=== PATIENT | male | born 1960 | race American Indian/Alaskan Native ===

== ENCOUNTER 2017-08-05 16:10 | Inpatient (IN) | payer MEDICAID ==
[2017-08-05] MEDS ORDERED: Sodium Chloride 0.9% 1,000 ML IV STA (16:31)
--- NOTE | 2017-08-05 16:55 | ED PDOC ---
Arrival/HPI - General Chief Complaint: Weakness/Neurological Deficit Time Seen by Provider: 08/05/17 16:19 Historian: Patient - History of Present Illness Narrative History of Present Illness (Text): 08/05/17 16:33 57 year old male, whose past medical history includes myasthenia gravis, comes in with mother and cousin, presents to the emergency department complaining of weakness for 3 days. Patient reports feeling dehydrated and weak, stating symptoms came out of nowhere. Patient's mother mentions patient was experiencing chills last week while taking antibiotics for elbow pain. Patient notes experiencing lower back pain, right shoulder pain, shortness of breath when ambulating, and appetite changes. Denies of any fever, nausea, vomiting, abdominal pain, chest pain, headache, hematuria, urine output changes, or any other complaints. Patient sometimes uses a cane to ambulate but normally does not. PMD: Dr. Gasca Symptom Onset: Gradual Symptom Course: Unchanged Past Medical History - Provider Review Nursing Documentation Reviewed: Yes - Infectious Disease Hx of Infectious Diseases: None - Tetanus Immunization Tetanus Immunization: Unknown - Cardiac Hx Cardiac Disorders: Yes Hx Hypertension: Yes - Pulmonary Hx Respiratory Disorders: No - Neurological Hx Neurological Disorder: Yes (myasthenia gravis, Multiple Sclerosis) - HEENT Hx HEENT Disorder: No - Renal Hx Renal Disorder: Yes - Endocrine/Metabolic Hx Endocrine Disorders: No - Hematological/Oncological Hx Blood Disorders: Yes - Integumentary Hx Dermatological Disorder: No - Musculoskeletal/Rheumatological Hx Musculoskeletal Disorders: No - Gastrointestinal Hx Gastrointestinal Disorders: No - Genitourinary/Gynecological Hx Genitourinary Disorders: No - Psychiatric Hx Psychophysiologic Disorder: No Hx Substance Use: No - Surgical History Other/Comment: Thymectomy - Anesthesia Hx Anesthesia: Yes - Suicidal Assessment Feels Threatened In Home Enviroment: No Family/Social History - Physician Review Nursing Documentation Reviewed: Yes Family/Social History: No Known Family HX Smoking Status: Former Smoker Hx Alcohol Use: No Hx Substance Use: No Allergies/Home Meds Allergies/Adverse Reactions: Allergies No Known Allergies Allergy (Verified 06/11/16 09:01) Home Medications: Home Meds Medication Instructions Recorded Confirmed Lenalidomide [Revlimid] 25 mg PO DAILY 04/29/16 06/11/16 Mycophenolate Mofetil [Cellcept] 500 mg PO BID 04/29/16 06/11/16 predniSONE [predniSONE Tab] 10 mg PO BID 04/29/16 06/11/16 Furosemide [Lasix] 0 mg PO DAILY 06/11/16 06/11/16 Amoxicillin/Clavulanate 875 mg PO BID 01/29/17 01/29/17 Dexamethasone 40 mg PO MON 01/29/17 01/29/17 Ergocalciferol (Vitamin D2) 50,000 units PO MON 01/29/17 01/29/17 [Vitamin D2] Ferrous Sulfate [Feosol] 1 tab PO DAILY 01/29/17 01/29/17 Flovent Hfa 2 inh INH BID 01/29/17 01/29/17 Lenalidomide [Revlimid] 25 mg PO DAILY 01/29/17 01/29/17 Losartan-Hctz 50-12.5 mg Tab 1 tab PO QAM 01/29/17 01/29/17 Mycophenolate 500 mg PO BID 01/29/17 01/29/17 Promethazine DM 1 tsp PO TID 01/29/17 01/29/17 predniSONE [predniSONE Tab] 5 mg PO BID 01/29/17 01/29/17 Review of Systems - Physician Review All systems were reviewed & negative as marked: Yes - Review of Systems Constitutional: absent: Fevers Respiratory: SOB (sob when ambulating) Cardiovascular: absent: Chest Pain Gastrointestinal: Appetite Changes. absent: Abdominal Pain, Nausea, Vomiting Genitourinary Male: absent: Hematuria, Urinary Output Changes Musculoskeletal: Back Pain (lower back pain), Other (right shoulder pain) Neurological: absent: Headache Physical Exam Vital Signs Reviewed: Yes Vital Signs Temp Pulse Resp BP Pulse Ox 08/05/17 18:10 70 20 95/55 L 100 08/05/17 17:20 66 20 94/55 L 100 08/05/17 16:24 98.2 F 69 18 90/66 L 96 08/05/17 16:20 98.1 F 71 18 95 Temperature: Afebrile Blood Pressure: Normal Pulse: Regular Respiratory Rate: Normal Appearance: Positive for: Cachectic Pain Distress: None Mental Status: Positive for: Alert and Oriented X 3 - Systems Exam Head: Present: Atraumatic, Normocephalic Pupils: Present: PERRL Conjunctiva: Present: Other (pale) Mouth: Present: Dry Pharnyx: Present: Normal. No: ERYTHEMA, EXUDATE Neck: Present: Normal Range of Motion Respiratory/Chest: Present: Decreased Breath Sounds (crackles) Cardiovascular: Present: Regular Rate and Rhythm, Normal S1, S2. No: Murmurs Abdomen: Present: Normal Bowel Sounds. No: Tenderness, Distention, Peritoneal Signs Back: Present: Normal Inspection Upper Extremity: Present: Normal Inspection. No: Cyanosis, Edema Lower Extremity: Present: Normal Inspection. No: Edema Neurological: Present: GCS=15, CN II-XII Intact, Speech Normal Skin: Present: Warm, Dry, Pale. No: Rashes Psychiatric: Present: Alert, Oriented x 3, Normal Insight, Normal Concentration Medical Decision Making ED Course and Treatment: 08/05/17 16:38 Impression: 57 year old male with weakness. Physical exam shows crackles of the lungs; cachectic appearing, pale; mucous membranes dry. BP is low. Differential Diagnosis included but are not limited to: Anemia due to multiple myeloma vs. Myasthenia gravis flare vs. Electrolyte Abnormality vs. Dehydration Plan: -- EKG -- Chest X-ray -- Blood Gas -- Labs -- Urinalysis -- IV Fluids -- Blood Culture -- Urine Culture -- Reassess and disposition Prior Visits: Notes and results from previous visits were reviewed. Patient was last seen in the emergency department on 07/07/2017 for abdominal pain. Patient was discharged home. Progress Notes: 08/05/2017 18:53 Chest X-ray IMPRESSION: No active disease. No significant interval change compared to the prior examination(s). Dictator: Guicho Horner MD EKG: Ordered, reviewed, and independently interpreted the EKG. Rate : 62 BPM Rhythm : Sinus rhytm w/ marked sinus arrythmia. Interpretation : Minimal voltage criteria for LWH, may be normal variant. Non- specific ST and T-Wave abnormality. Comparison : No previous EKG for comparison. 08/05/17 19:39 Patient with noted history; labs showing pancytopenia with Hgb of 6.2 and pancytopenia - patient consented for blood transfusion of 3 units - ordered. K is also 2.7 to be supplemented. BP is borderline still - will need further hydration - discussed with Dr. Andujar for ICU admission. - Lab Interpretations Lab Results: 08/05/17 18:00 08/05/17 18:00 Lab Results 08/05/17 18:00: Blood Type Pending, Antibody Screen Pending, BBK History Checked Patient has bt 08/05/17 18:00: Sodium 141, Chloride 105, Potassium 2.7 L* D, Carbon Dioxide 28 , Anion Gap 11, BUN 15, Creatinine 0.8, Est GFR ( Amer) > 60, Est GFR ( Non-Af Amer) > 60, Random Glucose 92, Calcium 8.7, Phosphorus 2.2 L, Magnesium 1.4 L, Total Bilirubin 0.7, AST 10 L, ALT 15, Alkaline Phosphatase 63, Lactate Dehydrogenase 130 L, Total Creatine Kinase < 20 L, Troponin I < 0.01, Total Protein 5.6 L, Albumin 2.6 L, Globulin 2.9, Albumin/Globulin Ratio 0.9 L, Lipase < 10 L 08/05/17 18:00: pO2 221 H, VBG pH 7.49 H, VBG pCO2 38.0 L, VBG HCO3 29.0 H, VBG Total CO2 30.2 H, VBG O2 Sat (Calc) 98.9 H, VBG Base Excess 5.4 H, VBG Potassium 2.7 L, Sodium 140.0, Chloride 110.0 H, Glucose 95, Lactate 1.0, FiO2 21.0, Venous Blood Potassium 2.7 L 08/05/17 18:00: PT 14.0 H, INR 1.30 H, APTT 41.0 H 08/05/17 18:00: WBC 1.1 L* D, RBC 2.08 L, Hgb 6.2 L*, Hct 19.5 L*, MCV 93.8, MCH 29.8, MCHC 31.8, RDW 17.4 H, Plt Count 83 L, MPV 10.3, Gran % 55.9, Lymph % (Auto) 24.8, [place] % (Auto) 19.3 H, Eos % (Auto) 0.0 L, Baso % (Auto) 0.0, Gran # 0.61 L, Lymph # 0.3 L, [place] # 0.2, Eos # 0.0, Baso # 0.00, ESR 150 H I have reviewed the lab results: Yes - RAD Interpretation Radiology Orders: 08/05/17 16:29 CHEST PORTABLE [RAD] Stat - Medication Orders Current Medication Orders: Potassium Chloride (Potassium Chloride 10 Meq/100 Ml) 10 meq in 100 mls @ 100 mls/hr IVPB Q2H BRITTANY Stop: 08/05/17 21:59 Last Admin: 08/05/17 19:01 Dose: 100 mls/hr eMAR Start Stop Document 08/05/17 19:01 NH (Rec: 08/05/17 19:02 [facility]) Intravenous Solution Start Date 08/05/17 Start Time 19:01 End Date 08/05/17 End time 20:01 Total Infusion Time 60 Discontinued Medications Sodium Chloride (Sodium Chloride 0.9%) 1,000 mls @ 999 mls/hr IV .Q1H1M STA Stop: 08/05/17 17:31 Last Admin: 08/05/17 16:43 Dose: 999 mls/hr eMAR Start Stop Document 08/05/17 16:43 NH (Rec: 08/05/17 16:44 [facility]) Intravenous Solution Start Date 08/05/17 Start Time 16:44 Potassium Chloride (Potassium Chloride Oral Soln) 40 meq PO STAT STA Stop: 08/05/17 18:48 Last Admin: 08/05/17 18:59 Dose: 40 meq - Scribe Statement The provider has reviewed the documentation as recorded by the Malka Montes Provider Scribe Attestation: All medical record entries made by the Malka were at my direction and personally dictated by me. I have reviewed the chart and agree that the record accurately reflects my personal performance of the history, physical exam, medical decision making, and the department course for this patient. I have also personally directed, reviewed, and agree with the discharge instructions and disposition. Disposition/Present on Arrival - Present on Arrival Any Indicators Present on Arrival: No History of DVT/PE: No History of Uncontrolled Diabetes: No Urinary Catheter: No History of Decub. Ulcer: No History Surgical Site Infection Following: None - Disposition Have Diagnosis and Disposition been Completed?: Yes Diagnosis: Anemia, Pancytopenia Disposition: HOSPITALIZED Disposition Time: 19:35 Patient Plan: Admission, ICU Condition: SERIOUS Referrals: PCP,NO [Primary Care Provider] - Follow up with primary Forms: [employer] ([place]ic)
[2017-08-05 18:24] LABS: VENOUS BLOOD GAS BASE EXCESS 5.4 mmol/L (0.0-2.0); VENOUS BLOOD PH 7.49 (7.32-7.43)
[2017-08-05 18:29] LABS: GRAN # 0.61 (1.4-6.5); GRAN % 55.9 % (50.0-68.0); LYMPH # 0.3 (1.2-3.4); LYMPH % 24.8 % (22.0-35.0); MEAN CELL VOLUME 93.8 fl (80.0-105.0); MEAN CORPUSCULAR HEMOGLOBIN 29.8 pg (25.0-35.0); MEAN CORPUSCULAR HGB CONC 31.8 g/dl (31.0-37.0); MEAN PLATELET VOLUME 10.3 fl (7.0-11.0); MONO # 0.2 (0.1-0.6); MONO % 19.3 % (1.0-6.0); PLATELET COUNT 83 10^3/uL (120.0-450.0); RED CELL DISTRIBUTION WIDTH 17.4 % (11.5-14.5)
[2017-08-05 18:32] LABS: ALB/GLOB RATIO 0.9 (1.1-1.8); ALKALINE PHOSPHATASE 63 U/L (38-126); ALT/SGPT 15 U/L (7-56); AST/SGOT 10 U/L (17-59); BILIRUBIN,TOTAL 0.7 mg/dL (0.2-1.3); BLOOD UREA NITROGEN 15 mg/dL (7-21); CALCIUM 8.7 mg/dL (8.4-10.5); CARBON DIOXIDE 28 mmol/L (21-33); CHLORIDE 105 mmol/L (98-107); GFR AFRICAN-AMERICAN > 60; GLUCOSE,RANDOM 92 mg/dL (70-110); MAGNESIUM 1.4 mg/dL (1.7-2.2); PHOSPHOROUS 2.2 mg/dL (2.5-4.5); SODIUM 141 mmol/L (132-148); TOTAL PROTEIN 5.6 g/dL (5.8-8.3)
[2017-08-05 18:34] LABS: INR 1.3 (0.93-1.08); WHITE BLOOD COUNT 1.1 10^3/ul (4.5-11.0)
[2017-08-05 18:35] LABS: HEMATOCRIT 19.5 % (42.0-52.0)
[2017-08-05 18:42] LABS: LIPASE < 10 U/L (23-300)
[2017-08-05 18:44] LABS: TROPONIN I < 0.01 ng/mL
[2017-08-05 18:46] LABS: POTASSIUM 2.7 mmol/L (3.6-5.0)
[2017-08-05] MEDS ORDERED: Potassium Chloride 40 mEq/30 ml LIQ UD PO STA (18:47)
--- NOTE | 2017-08-05 18:54 | RAD ---
HISTORY: Sepsis Patient COMPARISON: No prior. FINDINGS: LUNGS: No active pulmonary disease. PLEURA: No significant pleural effusion identified, no pneumothorax apparent. CARDIOVASCULAR: No radiographic findings to suggest acute or significant cardiovascular disease. Incidental Finding(s): Postoperative changes related to sternotomy. OSSEOUS STRUCTURES: No significant abnormalities. VISUALIZED UPPER ABDOMEN: Normal. OTHER FINDINGS: None. IMPRESSION: No active disease. No significant interval change compared to the prior examination(s).
[2017-08-05 19:31] LABS: ERYTHROCYTE SEDIMENTATION RATE 150 mm/hr (0.00-15.0)
[2017-08-05] MEDS ORDERED: Magnesium Sulfate 2 GM in Sodium Chloride 0.9% 100 ML IVPB ONE (20:00)
[2017-08-05] MEDS ORDERED: Potassium Phosphate 3 mmol/ml Inj IV ONE (20:02)
[2017-08-05] MEDS ORDERED: Potassium Phosphate 15 MMOLE in Sodium Chloride 0.9% 250 ML IVPB ONE (20:15)
--- NOTE | 2017-08-05 20:15 | CP.PCM.HP ---
History of Present Illness - History of Present Illness History of Present Illness: The patient is a 57 year old man with a history of myasthenia gravis and multiple myeloma, who presents with 1 week of worsening generalized weakness, fatigue and RODRIGUEZ. On ED labs, he was noted to have pancytopenia (with Hgb=6.2) and neutropenia. He denies fevers, chills, chest pain, recent travel, AMS, dysuria, diarrhea, or bleeding. Present on Admission - Present on Admission Any Indicators Present on Admission: No Review of Systems - Review of Systems All systems: reviewed and no additional remarkable complaints except - Constitutional Constitutional: As Per HPI - EENT Eyes: As Per HPI Nose/Mouth/Throat: As Per HPI - Cardiovascular Cardiovascular: As Per HPI - Respiratory Respiratory: As Per HPI - Gastrointestinal Gastrointestinal: As Per HPI - Genitourinary Genitourinary: As Per HPI - Musculoskeletal Musculoskeletal: As Per HPI - Neurological Neurological: As Per HPI Past Patient History - Infectious Disease Hx of Infectious Diseases: None - Tetanus Immunizations Tetanus Immunization: Unknown - Past Medical History & Family History Past Medical History?: Yes - Past Social History Smoking Status: Former Smoker - CARDIAC Hx Cardiac Disorders: Yes Hx Hypertension: Yes - PULMONARY Hx Respiratory Disorders: No - NEUROLOGICAL Hx Neurological Disorder: Yes (myasthenia gravis, Multiple Sclerosis) - HEENT Hx HEENT Problems: No - RENAL Hx Chronic Kidney Disease: Yes - ENDOCRINE/METABOLIC Hx Endocrine Disorders: No - HEMATOLOGICAL/ONCOLOGICAL Hx Blood Disorders: Yes - INTEGUMENTARY Hx Dermatological Problems: No - MUSCULOSKELETAL/RHEUMATOLOGICAL Hx Musculoskeletal Disorders: No - GASTROINTESTINAL Hx Gastrointestinal Disorders: No - GENITOURINARY/GYNECOLOGICAL Hx Genitourinary Disorders: No - PSYCHIATRIC Hx Psychophysiologic Disorder: No Hx Substance Use: No - SURGICAL HISTORY Other/Comment: Thymectomy - ANESTHESIA Hx Anesthesia: Yes Meds Allergies/Adverse Reactions: Allergies Allergy/AdvReac Type Severity Reaction Status Date / Time No Known Allergies Allergy Verified 06/11/16 09:01 Physical Exam - Constitutional Appears: No Acute Distress, Chronically Ill - Head Exam Head Exam: ATRAUMATIC, NORMAL INSPECTION, NORMOCEPHALIC - Eye Exam Eye Exam: Normal appearance - ENT Exam ENT Exam: Mucous Membranes Dry - Neck Exam Neck exam: Positive for: Full Rom, Normal Inspection - Respiratory Exam Respiratory Exam: Clear to Auscultation Bilateral, NORMAL BREATHING PATTERN - Cardiovascular Exam Cardiovascular Exam: REGULAR RHYTHM - GI/Abdominal Exam GI & Abdominal Exam: Normal Bowel Sounds, Soft. absent: Tenderness - Rectal Exam Rectal Exam: Deferred - Extremities Exam Extremities exam: Positive for: normal inspection - Neurological Exam Additional comments: Grossly normal Results - Vital Signs Recent Vital Signs: Last Vital Signs Temp 98.2 F 08/05/17 16:24 Pulse 70 08/05/17 18:10 Resp 20 08/05/17 18:10 BP 95/55 L 08/05/17 18:10 Pulse Ox 100 08/05/17 18:10 - Labs Result Diagrams: 08/05/17 18:00 08/05/17 18:00 Assessment & Plan - Assessment and Plan (Free Text) Plan: A/P: The patient is a 57 year old man with a history of myasthenia gravis and multiple myeloma, who is being admitted for pancytopenia, symptomatic anemia and neutropenia. 1. Neutropenia: -likely associated with recent chemotherapy for MM -neutropenic precautions -neutropenic diet -check blood and urine cultures -check procalcitonin -heme/onc consulted -IVF's 2. Symptomatic Anemia: -likely associated with BM suppression -no evidence of overt bleeding -transfuse 2units PRBC's -O2 via NC as needed 3. Pancytopenia: -likely associated with BM suppression 4. Multiple Myeloma: -pt reportedly on chemo -heme/onc consulted -defer to heme-onc to resume appropriate home meds 5. Myasthenia Gravis: -O2 via NC PRN -fall precautions DVT PPx: SC Heparin and SCD's GI PPx: Protonix
[2017-08-05 20:42] LABS: NEUTROPHIL 54 % (50.0-70.0)
[2017-08-05] MEDS: Morphine 2 mg/ml ISec IVP PRN (21:52)
[2017-08-06 02:49] VITALS: BMI 18.8
[2017-08-06] MEDS: Pantoprazole 40 mg EC Tab PO SCH ×2 (05:49→06:41)
[2017-08-06] MEDS: Sodium Chloride 0.9% 1,000 ML IV SCH ×3 (06:29→21:41)
[2017-08-06] MEDS ORDERED: Sodium Chloride 0.9% 1,000 ML IV STA (07:00)
[2017-08-06 08:24] LABS: URINE BILIRUBIN NEGATIVE (NEGATIVE); URINE BLOOD NEGATIVE (NEGATIVE); URINE GLUCOSE (UA) NEGATIVE (NEGATIVE); URINE KETONE NEGATIVE (NEGATIVE); URINE LEUKOCYTE ESTERASE NEGATIVE Leu/uL (NEGATIVE); URINE PROTEIN NEGATIVE mg/dL (<30 mg/dL); URINE UROBILINOGEN 0.2 E.U./dL (<1 E.U./dL)
[2017-08-06 08:27] LABS: URINE APPEARANCE CLEAR (CLEAR); URINE COLOR YELLOW (YELLOW)
--- NOTE | 2017-08-06 11:41 | CARD ---
APPROVED REPORT EKG Measurement Heart [id number] <Conclusion> Sinus rhythm with marked sinus arrhythmia Minimal voltage criteria for LVH, may be normal variant Nonspecific ST and T wave abnormality Abnormal ECG
[2017-08-06 11:46] LABS: BASO # 0.01 K/mm3 (0.0-2.0); BASO % 0.8 % (0.0-3.0); EOS % 3.4 % (1.5-5.0); GRAN # 0.71 (1.4-6.5); GRAN % 59.7 % (50.0-68.0); HEMATOCRIT 29.8 % (42.0-52.0); LYMPH # 0.3 (1.2-3.4); MEAN CELL VOLUME 92.8 fl (80.0-105.0); MEAN CORPUSCULAR HEMOGLOBIN 30.2 pg (25.0-35.0); MEAN CORPUSCULAR HGB CONC 32.6 g/dl (31.0-37.0); MEAN PLATELET VOLUME 10.7 fl (7.0-11.0); MONO # 0.2 (0.1-0.6); MONO % 15.1 % (1.0-6.0); RED CELL DISTRIBUTION WIDTH 16.4 % (11.5-14.5); RETIC% 1.04 % (0.5-1.5)
[2017-08-06 11:55] LABS: WHITE BLOOD COUNT 1.2 10^3/ul (4.5-11.0)
[2017-08-06 11:56] LABS: ALKALINE PHOSPHATASE 63 U/L (38-126); ALT/SGPT 28 U/L (7-56); AST/SGOT 7 U/L (17-59); BILIRUBIN,TOTAL 1.3 mg/dL (0.2-1.3); BLOOD UREA NITROGEN 13 mg/dL (7-21); CALCIUM 8.3 mg/dL (8.4-10.5); CARBON DIOXIDE 26 mmol/L (21-33); CHLORIDE 107 mmol/L (95-110); GFR AFRICAN-AMERICAN > 60; GLUCOSE,RANDOM 90 mg/dL (70-110); MAGNESIUM 1.7 mg/dL (1.7-2.2); PHOSPHOROUS 4.3 mg/dL (2.5-4.5); POTASSIUM 4.1 mmol/L (3.6-5.0); SODIUM 141 mmol/L (132-148); TOTAL PROTEIN 5.4 g/dL (5.8-8.3)
[2017-08-06 11:58] LABS: ALB/GLOB RATIO 0.9 (1.1-1.8)
[2017-08-06 12:20] LABS: IRON 102 ug/dL (45-180)
--- NOTE | 2017-08-06 12:41 | CP.PCM.PN ---
<Ji Moon - Last Filed: 08/06/17 12:28> Subjective - Date & Time of Evaluation Date of Evaluation: 08/06/17 Time of Evaluation: 11:15 - Subjective Subjective: Subjective: Patient seen and examined at bedside. Resting comfortably in bed. No acute overnight events. Patient states that his weakness has decreased since admission. Offers no new complaints at this time. Denies f/c/cp/sob/abdominal pain/n/v/d/c/urinary sxs. Physical Examination: - Constitutional Appears: No Acute Distress, Chronically Ill - Head Exam Head Exam: ATRAUMATIC, NORMAL INSPECTION, NORMOCEPHALIC - Eye Exam Eye Exam: Normal appearance - ENT Exam ENT Exam: Mucous Membranes Dry - Neck Exam Neck exam: Positive for: Full Rom, Normal Inspection - Respiratory Exam Respiratory Exam: Clear to Auscultation Bilateral, NORMAL BREATHING PATTERN - Cardiovascular Exam Cardiovascular Exam: REGULAR RHYTHM - GI/Abdominal Exam GI & Abdominal Exam: Normal Bowel Sounds, Soft. absent: Tenderness - Rectal Exam Rectal Exam: Deferred - Extremities Exam Extremities exam: Positive for: normal inspection - Neurological Exam Additional comments: patient is awake, alert, responds to verbal stimuli, follows commands, and moves extremities past midline Assessment and Plan: Patient is a 57 year old man with a past medical history of myasthenia gravis and multiple myeloma, who is being admitted for evaluation and treatment of pancytopenia, symptomatic anemia and neutropenia. Neutropenia: -likely associated with recent chemotherapy for MM -neutropenic precautions -neutropenic diet - blood and urine cultures pending -check procalcitonin -heme/onc consulted- appreciate recs (patient sees oncologist in [place]) -IVF Symptomatic Anemia: -likely associated with BM suppression -no evidence of overt bleeding -transfused 2units PRBC's - recheck CBC shows Hgb increased from 6.2 to 9.7 -O2 via NC as needed Pancytopenia: -likely associated with BM suppression -heme/onc consulted- appreciate recs (patient sees oncologist in [place])- Dr. Padilla IgA, Igg, IgM, kappa/lambda free pending Multiple Myeloma: -pt reportedly on oral and IV chemo -heme/onc consulted- appreciate recs (patient sees oncologist in [place])- Dr. Padilla IgA, Igg, IgM, kappa/lambda free pending Myasthenia Gravis: -O2 via NC PRN -fall precautions Hypokalemia - repleted and recheck shows potassium corrected Hypomagnesemia - repleted and recheck mag tmr AM PPx: - SC Heparin and SCD's - Protonix Patient seen, case discussed with, and plan approved by attending physician, Dr. Wynn. Objective - Vital Signs/Intake and Output Vital Signs (last 24 hours): Temp Pulse Resp BP Pulse Ox 98.6 F 69 16 109/65 100 08/06/17 11:35 08/06/17 11:35 08/06/17 11:35 08/06/17 11:35 08/06/17 06:00 Intake and Output: 08/06/17 08/06/17 06:59 18:59 Intake Total 0 1280 Balance 0 1280 - Medications Medications: Current Medications Sodium Chloride (Sodium Chloride 0.9%) 1,000 mls @ 125 mls/hr IV .Q8H [facility] Last Admin: 08/06/17 06:29 Dose: 125 mls/hr Morphine Sulfate (Morphine) 0.5 mg IVP Q4H PRN PRN Reason: Pain, severe (8-10) Last Admin: 08/05/17 21:52 Dose: 0.5 mg Ondansetron HCl (Zofran Inj) 4 mg IVP Q6H PRN PRN Reason: Nausea/Vomiting Pantoprazole Sodium (Protonix Ec Tab) 40 mg PO 0600 [facility] Last Admin: 08/06/17 06:41 Dose: 40 mg - Labs Labs: 08/06/17 11:40 08/06/17 11:40 PT 14.0 Seconds (9.9-11.8) H 08/05/17 18:00 INR 1.30 (0.93-1.08) H 08/05/17 18:00 APTT 41.0 Seconds (23.7-30.8) H 08/05/17 18:00 <Amanuel Wynn - Last Filed: 08/10/17 13:13> Objective - Vital Signs/Intake and Output Vital Signs (last 24 hours): Temp Pulse Resp BP Pulse Ox 98.6 F 75 18 97/56 L 98 08/09/17 16:00 08/09/17 16:00 08/09/17 16:00 08/09/17 16:00 08/09/17 16:00 - Labs Labs: 08/09/17 10:15 08/09/17 10:15 PT 14.0 Seconds (9.9-11.8) H 08/05/17 18:00 INR 1.30 (0.93-1.08) H 08/05/17 18:00 APTT 41.0 Seconds (23.7-30.8) H 08/05/17 18:00 Attending/Attestation - Attestation I have personally seen and examined this patient.: Yes I have fully participated in the care of the patient.: Yes I have reviewed all pertinent clinical information, including history, physical exam and plan: Yes Notes (Text): I have seen and examined the patient at bedside. Agree with the note above with the following additions/ exceptions: Briefly this is 57 year old male with history of MG, MM who was admitted for pancytopenia. ANC is >500. Continue neutropenic precuations. Cultures pending. He is s/p 2 units prbc. Patient recently had chemotherapy. Awaiting heme onc consult. Upon discharge patient will follow up with Dr Olivares and Dr Reed. Dr Amanuel Wynn
[2017-08-06] MEDS: Morphine 2 mg/ml ISec IVP PRN (15:26)
[2017-08-06 16:45] LABS: IMMUNOGLOBULIN G 284.2 mg/dL (700.0-1600.0); IMMUNOGLOBULIN M 30.8 mg/dL (40.0-230.0)
[2017-08-06 17:13] LABS: IMMUNOGLOBULIN A 1231.6 mg/dL (70.0-400.0)
[2017-08-06 17:44] LABS: FOLATE 3.9 ng/mL
[2017-08-07] MEDS: Sodium Chloride 0.9% 1,000 ML IV SCH ×2 (05:28→12:57)
[2017-08-07] MEDS: Pantoprazole 40 mg EC Tab PO SCH (05:29)
[2017-08-07 05:35] VITALS: RESP 18
[2017-08-07 06:42] LABS: EOS % 1.9 % (1.5-5.0); GRAN # 0.66 (1.4-6.5); GRAN % 61.1 % (50.0-68.0); LYMPH # 0.3 (1.2-3.4); MEAN CORPUSCULAR HEMOGLOBIN 30.1 pg (25.0-35.0); MEAN CORPUSCULAR HGB CONC 32.7 g/dl (31.0-37.0); MEAN PLATELET VOLUME 10.2 fl (7.0-11.0); MONO # 0.1 (0.1-0.6); PLATELET COUNT 86 10^3/uL (120.0-450.0); RED CELL DISTRIBUTION WIDTH 16.8 % (11.5-14.5)
[2017-08-07 07:14] LABS: ALB/GLOB RATIO 0.8 (1.1-1.8); ALKALINE PHOSPHATASE 62 U/L (38-126); ALT/SGPT 23 U/L (7-56); AST/SGOT 9 U/L (17-59); BILIRUBIN,TOTAL 0.9 mg/dL (0.2-1.3); BLOOD UREA NITROGEN 12 mg/dL (7-21); CALCIUM 7.8 mg/dL (8.4-10.5); CARBON DIOXIDE 27 mmol/L (21-33); CHLORIDE 107 mmol/L (95-110); GFR AFRICAN-AMERICAN > 60; GLUCOSE,RANDOM 85 mg/dL (70-110); MAGNESIUM 1.4 mg/dL (1.7-2.2); PHOSPHOROUS 2.5 mg/dL (2.5-4.5); POTASSIUM 4.3 mmol/L (3.6-5.0); SODIUM 139 mmol/L (132-148); TOTAL PROTEIN 5.2 g/dL (5.8-8.3)
[2017-08-07 07:43] LABS: WHITE BLOOD COUNT 1.1 10^3/ul (4.5-11.0)
[2017-08-07 10:07] LABS: EOSINOPHIL 1 % (0.0-3.0); NEUTROPHIL 65 % (50.0-70.0)
[2017-08-07 10:08] LABS: GIANT PLATELETS PRESENT
--- NOTE | 2017-08-07 13:59 | CP.PCM.PN ---
Addendum entered and electronically signed by Trevon Barahona DO 08/07/17 15:58 : Pt complains of R shoulder and elbow pain following nursing staff changing his position. Recent hx of elbow surgery. On exam limited ROM of R elbow and shoulder. Pulses and sensation is intact. Will order Xrays of shoulder and elbow. Original Note: <Ji Moon - Last Filed: 08/07/17 13:59> Subjective - Date & Time of Evaluation Date of Evaluation: 08/07/17 Time of Evaluation: 13:00 - Subjective Subjective: Subjective: Patient seen and examined at bedside. Resting comfortably in bed. No acute overnight events. Patient states that he has improved strength overall. Offers no new complaints at this time. Denies f/c/cp/sob/abdominal pain/n/v/d/c/ urinary sxs. Physical Examination: - Constitutional Appears: No Acute Distress, Chronically Ill - Head Exam Head Exam: ATRAUMATIC, NORMAL INSPECTION, NORMOCEPHALIC - Eye Exam Eye Exam: Normal appearance - ENT Exam ENT Exam: Mucous Membranes Dry - Neck Exam Neck exam: Positive for: Full Rom, Normal Inspection - Respiratory Exam Respiratory Exam: Clear to Auscultation Bilateral, NORMAL BREATHING PATTERN - Cardiovascular Exam Cardiovascular Exam: REGULAR RHYTHM - GI/Abdominal Exam GI & Abdominal Exam: Normal Bowel Sounds, Soft. absent: Tenderness - Rectal Exam Rectal Exam: Deferred - Extremities Exam Extremities exam: Positive for: normal inspection - Neurological Exam Additional comments: patient is awake, alert, responds to verbal stimuli, follows commands, and moves extremities past midline Assessment and Plan: Patient is a 57 year old man with a past medical history of myasthenia gravis and multiple myeloma, who is being admitted for evaluation and treatment of pancytopenia, symptomatic anemia and neutropenia. Neutropenia: -likely associated with recent chemotherapy for MM revlimid -neutropenic precautions -neutropenic diet - blood and urine cultures pending -check procalcitonin -heme/onc consulted- appreciate recs (patient sees oncologist in [place]- Dr. Wu)- IgG and IgM are low and IgA is elevated, awaiting kappa/lambda results and further recs -IVF Symptomatic Anemia: -likely associated with BM suppression -no evidence of overt bleeding -transfused 2units PRBC's - recheck CBC shows Hgb increased from 6.2 to 9.7 to 9.8 -O2 via NC as needed Pancytopenia: -likely associated with BM suppression -heme/onc consulted- appreciate recs (patient sees oncologist in [place])- Dr. Padilla IgA, Igg, IgM, kappa/lambda free pending Multiple Myeloma: -pt reportedly on oral and IV chemo -heme/onc consulted- appreciate recs (patient sees oncologist in [place])- Dr. Padilla IgA, Igg, IgM, kappa/lambda free pending - on cellcept and prednsone Myasthenia Gravis: -O2 via NC PRN -fall precautions Hypokalemia - repleted and recheck shows potassium corrected Hypomagnesemia - repleted and recheck mag tmr AM PPx: - SC Heparin and SCD's - Protonix Patient seen, case discussed with, and plan approved by attending physician, Dr. Wynn. Objective - Vital Signs/Intake and Output Vital Signs (last 24 hours): Temp Pulse Resp BP Pulse Ox 97.9 F 67 18 105/60 100 08/07/17 12:00 08/07/17 10:00 08/07/17 05:34 08/07/17 05:34 08/07/17 05:34 Intake and Output: 08/07/17 08/07/17 06:59 18:59 Intake Total 1865 1325 Output Total 950 350 Balance 915 975 - Medications Medications: Current Medications Acetaminophen (Tylenol 325mg Tab) 650 mg PO Q6H PRN PRN Reason: Fever >100.4 F Last Admin: 08/07/17 01:50 Dose: 650 mg Sodium Chloride (Sodium Chloride 0.9%) 1,000 mls @ 125 mls/hr IV .Q8H [facility] Last Admin: 08/07/17 12:57 Dose: Not Given Morphine Sulfate (Morphine) 0.5 mg IVP Q4H PRN PRN Reason: Pain, severe (8-10) Last Admin: 08/06/17 15:26 Dose: 0.5 mg Mycophenolate Mofetil (Cellcept Cap) 500 mg PO BID [facility] Last Admin: 08/07/17 09:27 Dose: 500 mg Ondansetron HCl (Zofran Inj) 4 mg IVP Q6H PRN PRN Reason: Nausea/Vomiting Pantoprazole Sodium (Protonix Ec Tab) 40 mg PO 0600 [facility] Last Admin: 08/07/17 05:29 Dose: 40 mg Prednisone (Prednisone Tab) 5 mg PO BID [facility] Last Admin: 08/07/17 09:27 Dose: 5 mg - Labs Labs: 08/07/17 05:30 08/07/17 05:30 PT 14.0 Seconds (9.9-11.8) H 08/05/17 18:00 INR 1.30 (0.93-1.08) H 08/05/17 18:00 APTT 41.0 Seconds (23.7-30.8) H 08/05/17 18:00 <Amanuel Wynn - Last Filed: 08/10/17 13:18> Objective - Vital Signs/Intake and Output Vital Signs (last 24 hours): Temp Pulse Resp BP Pulse Ox 98.6 F 75 18 97/56 L 98 08/09/17 16:00 08/09/17 16:00 08/09/17 16:00 08/09/17 16:00 08/09/17 16:00 - Labs Labs: 08/09/17 10:15 08/09/17 10:15 PT 14.0 Seconds (9.9-11.8) H 08/05/17 18:00 INR 1.30 (0.93-1.08) H 08/05/17 18:00 APTT 41.0 Seconds (23.7-30.8) H 08/05/17 18:00 Attending/Attestation - Attestation I have personally seen and examined this patient.: Yes I have fully participated in the care of the patient.: Yes I have reviewed all pertinent clinical information, including history, physical exam and plan: Yes Notes (Text): I have seen and examined the patient at bedside. Agree with the note above with the following additions/ exceptions: Briefly this is 57 year old male with history of MG, MM who was admitted for pancytopenia. ANC is >500. Continue neutropenic precuations. Cultures pending. He is s/p 2 units prbc. Patient recently had chemotherapy. Heme onc consult appreciated. Pancytopenia is secondary to BM suppression. Right elbow xray revealed non united fracture of distal humerus. Will consult ortho. Upon discharge patient will follow up with Dr Olivares and Dr Reed. Dr Amanuel Wynn
[2017-08-07] MEDS ORDERED: Magnesium Sulfate 2 GM in Sodium Chloride 0.9% 100 ML IVPB ONE (14:02)
--- NOTE | 2017-08-07 15:31 | CP.PCM.CON ---
History of Present Illness - History of Present Illness History of Present Illness: 57 year old male with a history of myesthenia gravis, multiple myeloma dx in 2013 on chemotherapy admitted with pancytopenia and symptomatic anemia. The patient has been off chemotherapy due to recent infection of infected orthopedic hardware in his arm. He reports to progressive fatigue and was found to have hgb of 6.2. He denies abnormal bleeding and bruising. Past medical history: myesthenia gravis, multiple myeloma Past surgical history: Arm orthopedic fixation Family history: Denies hematologic and oncologic problems Social history: Denies tobacco, alcohol, and illicit drug use. Allergies: NKA Review of system: All remaining review of systems including HEENT, cardiovascular, respiratory, gastrointestinal, genitourinary, musculoskeletal, dermatologic, neurologic, and psychiatric are negative unless mentioned in the HPI. Past Patient History - Infectious Disease Hx of Infectious Diseases: None - Tetanus Immunizations Tetanus Immunization: Unknown - Past Medical History & Family History Past Medical History?: Yes - Past Social History Smoking Status: Former Smoker - CARDIAC Hx Cardiac Disorders: Yes Hx Hypertension: Yes - PULMONARY Hx Respiratory Disorders: No - NEUROLOGICAL Hx Neurological Disorder: Yes (myasthenia gravis, Multiple Sclerosis) - HEENT Hx HEENT Problems: No - RENAL Hx Chronic Kidney Disease: Yes - ENDOCRINE/METABOLIC Hx Endocrine Disorders: No - HEMATOLOGICAL/ONCOLOGICAL Hx Blood Disorders: Yes - INTEGUMENTARY Hx Dermatological Problems: No - MUSCULOSKELETAL/RHEUMATOLOGICAL Hx Musculoskeletal Disorders: No - GASTROINTESTINAL Hx Gastrointestinal Disorders: No - GENITOURINARY/GYNECOLOGICAL Hx Genitourinary Disorders: No - PSYCHIATRIC Hx Psychophysiologic Disorder: No Hx Substance Use: No - SURGICAL HISTORY Other/Comment: Thymectomy - ANESTHESIA Hx Anesthesia: Yes Meds Allergies/Adverse Reactions: Allergies Allergy/AdvReac Type Severity Reaction Status Date / Time No Known Allergies Allergy Verified 06/11/16 09:01 - Medications Medications: Current Medications Acetaminophen (Tylenol 325mg Tab) 650 mg PO Q6H PRN PRN Reason: Fever >100.4 F Last Admin: 08/07/17 01:50 Dose: 650 mg Sodium Chloride (Sodium Chloride 0.9%) 1,000 mls @ 125 mls/hr IV .Q8H [facility] Last Admin: 08/07/17 12:57 Dose: Not Given Morphine Sulfate (Morphine) 0.5 mg IVP Q4H PRN PRN Reason: Pain, severe (8-10) Last Admin: 08/06/17 15:26 Dose: 0.5 mg Mycophenolate Mofetil (Cellcept Cap) 500 mg PO BID [facility] Last Admin: 08/07/17 09:27 Dose: 500 mg Ondansetron HCl (Zofran Inj) 4 mg IVP Q6H PRN PRN Reason: Nausea/Vomiting Pantoprazole Sodium (Protonix Ec Tab) 40 mg PO 0600 [facility] Last Admin: 08/07/17 05:29 Dose: 40 mg Prednisone (Prednisone Tab) 5 mg PO BID [facility] Last Admin: 08/07/17 09:27 Dose: 5 mg Physical Exam - Head Exam Head Exam: ATRAUMATIC - Eye Exam Eye Exam: Normal appearance - ENT Exam ENT Exam: Mucous Membranes Dry - Respiratory Exam Respiratory Exam: NORMAL BREATHING PATTERN - Cardiovascular Exam Cardiovascular Exam: +S1, +S2 - GI/Abdominal Exam GI & Abdominal Exam: Normal Bowel Sounds - Extremities Exam Extremities exam: Positive for: normal inspection - Neurological Exam Neurological exam: Oriented x3 - Psychiatric Exam Psychiatric exam: Normal Affect, Normal Mood - Skin Skin Exam: Warm Results - Vital Signs Recent Vital Signs: Last Vital Signs Temp 97.9 F 08/07/17 12:00 Pulse 67 08/07/17 10:00 Resp 18 08/07/17 05:34 BP 105/60 08/07/17 05:34 Pulse Ox 100 08/07/17 05:34 - Labs Result Diagrams: 08/09/17 10:15 08/09/17 10:15 Labs: Laboratory Results - last 24 hr 08/06/17 08/06/17 08/07/17 11:40 11:57 05:30 WBC 1.1 L* RBC 3.26 L Hgb 9.8 L Hct 30.0 L MCV 92.0 MCH 30.1 MCHC 32.7 RDW 16.8 H Plt Count 86 L MPV 10.2 Gran % 61.1 Lymph % (Auto) 25.0 [place] % (Auto) 12.0 H Eos % (Auto) 1.9 Baso % (Auto) 0.0 Gran # 0.66 L Lymph # 0.3 L [place] # 0.1 Eos # 0.0 Baso # 0.00 Neutrophils % (Manual) 65 Lymphocytes % (Manual) 24 Monocytes % (Manual) 10 H Eosinophils % (Manual) 1 Giant Platelets Present Sodium Potassium Chloride Carbon Dioxide Anion Gap BUN Creatinine Est GFR ( Amer) Est GFR (Non-Af Amer) Random Glucose Calcium Phosphorus Magnesium Ferritin 1360.0 Total Bilirubin AST ALT Alkaline Phosphatase Total Protein Albumin Globulin Albumin/Globulin Ratio Vitamin B12 880 Folate 3.9 IgG 284.2 L IgA 1231.6 H IgM 30.8 L 08/07/17 05:30 WBC RBC Hgb Hct MCV MCH MCHC RDW Plt Count MPV Gran % Lymph % (Auto) [place] % (Auto) Eos % (Auto) Baso % (Auto) Gran # Lymph # [place] # Eos # Baso # Neutrophils % (Manual) Lymphocytes % (Manual) Monocytes % (Manual) Eosinophils % (Manual) Giant Platelets Sodium 139 Potassium 4.3 Chloride 107 Carbon Dioxide 27 Anion Gap 9 L BUN 12 Creatinine 0.7 Est GFR ( Amer) > 60 Est GFR (Non-Af Amer) > 60 Random Glucose 85 Calcium 7.8 L Phosphorus 2.5 Magnesium 1.4 L Ferritin Total Bilirubin 0.9 AST 9 L D ALT 23 Alkaline Phosphatase 62 Total Protein 5.2 L Albumin 2.3 L Globulin 2.9 Albumin/Globulin Ratio 0.8 L Vitamin B12 Folate IgG IgA IgM Assessment & Plan (1) Pancytopenia Assessment and Plan: secondary to multiple myeloma; okay to restart Pomalyst moderate neutropenia; no current indication for growth factor support agree with PRBC transfusion support no plt transfusion indication Status: Acute Priority: High (2) Coagulopathy Assessment and Plan: nutritional Status: Acute (3) Myeloma Assessment and Plan: okay to restart Pomalyst Thank you for this interesting consult. Status: Acute
[2017-08-07] MEDS: Morphine 2 mg/ml ISec IVP PRN (20:08)
--- NOTE | 2017-08-07 20:45 | CP.PCM.CON ---
History of Present Illness - History of Present Illness History of Present Illness: Infectious Disease Consultation: August 07, 2017 57 yo AA male well known to me from outpatient home IV infusions where the patient had received IV Vancomycin for treatment for MRSA in the Right elbow then Dalvance. The patient had multiple compliance issues with the IV Vancomycin so the patient received Dalvance 1500mg weekly for 2 weeks in the outpatient setting. Second dose was given 2 weeks ago. In the outpatient setting, the WBC was low from 3-5 during the last 3 weeks of his antibiotic treatment. He also displayed renal insufficiency and acute kidney injury during the treatment time. We could never verify if he had been taking the Vancomycin properly as his Vancomycin level varied widely. Last surgery was about 6 weeks ago for the right elbow. The wound site has healed rather well from the last time I examined the wound site. PMHx: Myasthenia Gravis, Multiple Sclerosis, Renal Insufficiency PSHx: Thymectomy, Multiple I&D of the right elbow. Allergies: NKDA Social Hx: No tobacco, EtOH, or Illicit drug use. Active Medications Acetaminophen (Tylenol 325mg Tab) 650 mg PO Q6H PRN PRN Reason: Fever >100.4 F Last Admin: 08/07/17 01:50 Dose: 650 mg Home Med (Home Med) 1 unit PO DAILY [facility] Sodium Chloride (Sodium Chloride 0.9%) 1,000 mls @ 125 mls/hr IV .Q8H [facility] Last Admin: 08/07/17 12:57 Dose: Not Given Morphine Sulfate (Morphine) 0.5 mg IVP Q4H PRN PRN Reason: Pain, severe (8-10) Last Admin: 08/07/17 20:08 Dose: 0.5 mg Mycophenolate Mofetil (Cellcept Cap) 500 mg PO BID [facility] Last Admin: 08/07/17 18:00 Dose: 500 mg Ondansetron HCl (Zofran Inj) 4 mg IVP Q6H PRN PRN Reason: Nausea/Vomiting Pantoprazole Sodium (Protonix Ec Tab) 40 mg PO 0600 [facility] Last Admin: 08/07/17 05:29 Dose: 40 mg Prednisone (Prednisone Tab) 5 mg PO BID [facility] Last Admin: 08/07/17 18:00 Dose: 5 mg Family Hx: none given ROS: No fevers, chills, nausea, vomiting, diarrhea, chest pain, abdominal pain, melena, hematuria, hematemesis, hematochezia, depresion, anxiety Past Patient History - Infectious Disease Hx of Infectious Diseases: None - Tetanus Immunizations Tetanus Immunization: Unknown - Past Medical History & Family History Past Medical History?: Yes - Past Social History Smoking Status: Former Smoker - CARDIAC Hx Cardiac Disorders: Yes Hx Hypertension: Yes - PULMONARY Hx Respiratory Disorders: No - NEUROLOGICAL Hx Neurological Disorder: Yes (myasthenia gravis, Multiple Sclerosis) - HEENT Hx HEENT Problems: No - RENAL Hx Chronic Kidney Disease: Yes - ENDOCRINE/METABOLIC Hx Endocrine Disorders: No - HEMATOLOGICAL/ONCOLOGICAL Hx Blood Disorders: Yes - INTEGUMENTARY Hx Dermatological Problems: No - MUSCULOSKELETAL/RHEUMATOLOGICAL Hx Musculoskeletal Disorders: No - GASTROINTESTINAL Hx Gastrointestinal Disorders: No - GENITOURINARY/GYNECOLOGICAL Hx Genitourinary Disorders: No - PSYCHIATRIC Hx Psychophysiologic Disorder: No Hx Substance Use: No - SURGICAL HISTORY Other/Comment: Thymectomy - ANESTHESIA Hx Anesthesia: Yes Meds Allergies/Adverse Reactions: Allergies Allergy/AdvReac Type Severity Reaction Status Date / Time No Known Allergies Allergy Verified 06/11/16 09:01 - Medications Medications: Current Medications Acetaminophen (Tylenol 325mg Tab) 650 mg PO Q6H PRN PRN Reason: Fever >100.4 F Last Admin: 08/07/17 01:50 Dose: 650 mg Home Med (Home Med) 1 unit PO DAILY [facility] Sodium Chloride (Sodium Chloride 0.9%) 1,000 mls @ 125 mls/hr IV .Q8H [facility] Last Admin: 08/07/17 12:57 Dose: Not Given Pamidronate Disodium 90 mg/ (Sodium Chloride) 510 mls @ 127.5 mls/hr IVPB ONCE ONE Stop: 08/07/17 20:30 Last Admin: 08/07/17 15:50 Dose: 127.5 mls/hr Morphine Sulfate (Morphine) 0.5 mg IVP Q4H PRN PRN Reason: Pain, severe (8-10) Last Admin: 08/06/17 15:26 Dose: 0.5 mg Mycophenolate Mofetil (Cellcept Cap) 500 mg PO BID [facility] Last Admin: 08/07/17 18:00 Dose: 500 mg Ondansetron HCl (Zofran Inj) 4 mg IVP Q6H PRN PRN Reason: Nausea/Vomiting Pantoprazole Sodium (Protonix Ec Tab) 40 mg PO 0600 [facility] Last Admin: 08/07/17 05:29 Dose: 40 mg Prednisone (Prednisone Tab) 5 mg PO BID [facility] Last Admin: 08/07/17 18:00 Dose: 5 mg Physical Exam - Constitutional Appears: Non-toxic, No Acute Distress, Chronically Ill - Head Exam Head Exam: ATRAUMATIC, NORMOCEPHALIC - Eye Exam Eye Exam: EOMI, PERRL Pupil Exam: NORMAL ACCOMODATION, PERRL - ENT Exam ENT Exam: Mucous Membranes Moist, Normal External Ear Exam, TM's Normal Bilaterally - Neck Exam Neck exam: Positive for: Full Rom, Normal Inspection - Respiratory Exam Respiratory Exam: Clear to Auscultation Bilateral, NORMAL BREATHING PATTERN. absent: Rales, Rhonchi, Wheezes - Cardiovascular Exam Cardiovascular Exam: REGULAR RHYTHM, RRR, +S1, +S2 - GI/Abdominal Exam GI & Abdominal Exam: Normal Bowel Sounds, Soft. absent: Distended, Tenderness - Extremities Exam Extremities exam: Positive for: normal inspection Additional comments: general weakness. - Neurological Exam Neurological exam: Alert, CN II-XII Intact, Oriented x3 - Psychiatric Exam Psychiatric exam: Normal Affect, Normal Mood - Skin Skin Exam: Intact, Normal Color Results - Vital Signs Recent Vital Signs: Last Vital Signs Temp 97.3 F L 08/07/17 16:04 Pulse 66 08/07/17 16:04 Resp 18 08/07/17 16:04 BP 125/78 08/07/17 16:04 Pulse Ox 98 08/07/17 16:04 - Labs Result Diagrams: 08/07/17 05:30 08/07/17 05:30 Labs: Laboratory Results - last 24 hr 08/07/17 08/07/17 05:30 05:30 WBC 1.1 L* RBC 3.26 L Hgb 9.8 L Hct 30.0 L MCV 92.0 MCH 30.1 MCHC 32.7 RDW 16.8 H Plt Count 86 L MPV 10.2 Gran % 61.1 Lymph % (Auto) 25.0 [place] % (Auto) 12.0 H Eos % (Auto) 1.9 Baso % (Auto) 0.0 Gran # 0.66 L Lymph # 0.3 L [place] # 0.1 Eos # 0.0 Baso # 0.00 Neutrophils % (Manual) 65 Lymphocytes % (Manual) 24 Monocytes % (Manual) 10 H Eosinophils % (Manual) 1 Giant Platelets Present Sodium 139 Potassium 4.3 Chloride 107 Carbon Dioxide 27 Anion Gap 9 L BUN 12 Creatinine 0.7 Est GFR ( Amer) > 60 Est GFR (Non-Af Amer) > 60 Random Glucose 85 Calcium 7.8 L Phosphorus 2.5 Magnesium 1.4 L Total Bilirubin 0.9 AST 9 L D ALT 23 Alkaline Phosphatase 62 Total Protein 5.2 L Albumin 2.3 L Globulin 2.9 Albumin/Globulin Ratio 0.8 L Assessment & Plan - Assessment and Plan (Free Text) Assessment: 57 yo AA male with completion of antibiotic therapy with Dalvance about 2 weeks ago for MRSA in the right elbow and was on IV Vancomycin prior to that. The last laboratories I have are from 07/21/2017 showing WBC of 4.1 at that time, Platelets of 132, and Hgb of 7.4. ESR was 50 at that time. The right elbow site has healed. Creatinine of 0.99 at that time. The patient is currently showing leukopenia. Dalvance stays in the body for around 2 weeks. I would not give any further antibiotics at this time. Monitor leukopenia. Thank you for allowing me to participate in the care of the patient, we will follow with you.
[2017-08-08] MEDS: Morphine 2 mg/ml ISec IVP PRN (04:39)
--- NOTE | 2017-08-08 04:45 | CP.PCM.DIS ---
Provider - Provider Date of Admission: 08/05/17 19:36 Attending physician: Amanuel Wynn MD Primary care physician: NO PRIMARY CARE PROVIDER Consults: Dr. Wu- Hematology and Oncology Time Spent in preparation of Discharge (in minutes): 30 Diagnosis - Discharge Diagnosis (1) Multiple myeloma Status: Acute Priority: High (2) Pancytopenia Status: Acute Priority: High (3) Myasthenia gravis Status: Acute Priority: High Hospital Course - Lab Results Lab Results: Micro Results 08/06/17 01:00 [place] MRSA Culture (Admit) - Final MRSA NOT DETECTED Most Recent Lab Values WBC 1.1 10^3/ul (4.5-11.0) L* 08/07/17 05:30 RBC 3.26 10^6/uL (3.5-6.1) L 08/07/17 05:30 Hgb 9.8 g/dL (14.0-18.0) L 08/07/17 05:30 Hct 30.0 % (42.0-52.0) L 08/07/17 05:30 MCV 92.0 fl (80.0-105.0) 08/07/17 05:30 MCH 30.1 pg (25.0-35.0) 08/07/17 05:30 MCHC 32.7 g/dl (31.0-37.0) 08/07/17 05:30 RDW 16.8 % (11.5-14.5) H 08/07/17 05:30 Plt Count 86 10^3/uL (120.0-450.0) L 08/07/17 05:30 MPV 10.2 fl (7.0-11.0) 08/07/17 05:30 Gran % 61.1 % (50.0-68.0) 08/07/17 05:30 Lymph % (Auto) 25.0 % (22.0-35.0) 08/07/17 05:30 [place] % (Auto) 12.0 % (1.0-6.0) H 08/07/17 05:30 Eos % (Auto) 1.9 % (1.5-5.0) 08/07/17 05:30 Baso % (Auto) 0.0 % (0.0-3.0) 08/07/17 05:30 Gran # 0.66 (1.4-6.5) L 08/07/17 05:30 Lymph # 0.3 (1.2-3.4) L 08/07/17 05:30 [place] # 0.1 (0.1-0.6) 08/07/17 05:30 Eos # 0.0 (0.0-0.7) 08/07/17 05:30 Baso # 0.00 K/mm3 (0.0-2.0) 08/07/17 05:30 Neutrophils % (Manual) 65 % (50.0-70.0) 08/07/17 05:30 Lymphocytes % (Manual) 24 % (22.0-35.0) 08/07/17 05:30 Monocytes % (Manual) 10 % (1.0-6.0) H 08/07/17 05:30 Eosinophils % (Manual) 1 % (0.0-3.0) 08/07/17 05:30 Giant Platelets Present 08/07/17 05:30 ESR 150 mm/hr (0.00-15.0) H 08/05/17 18:00 Retic Count 1.04 % (0.5-1.5) 08/06/17 11:40 PT 14.0 Seconds (9.9-11.8) H 08/05/17 18:00 INR 1.30 (0.93-1.08) H 08/05/17 18:00 APTT 41.0 Seconds (23.7-30.8) H 08/05/17 18:00 pO2 221 mm/Hg (30-55) H 08/05/17 18:00 VBG pH 7.49 (7.32-7.43) H 08/05/17 18:00 VBG pCO2 38.0 (40-60) L 08/05/17 18:00 VBG HCO3 29.0 mmol/l (21-28) H 08/05/17 18:00 VBG Total CO2 30.2 mmol.L (22-28) H 08/05/17 18:00 VBG O2 Sat (Calc) 98.9 % (40-65) H 08/05/17 18:00 VBG Base Excess 5.4 mmol/L (0.0-2.0) H 08/05/17 18:00 VBG Potassium 2.7 mmol/L (3.6-5.2) L 08/05/17 18:00 Sodium 140.0 mmol/L (132-148) 08/05/17 18:00 Chloride 110.0 mmol/L (98-107) H 08/05/17 18:00 Glucose 95 mg/dl (75-110) 08/05/17 18:00 Lactate 1.0 mmol/L (0.7-2.1) 08/05/17 18:00 FiO2 21.0 % 08/05/17 18:00 Sodium 139 mmol/L (132-148) 08/07/17 05:30 Potassium 4.3 mmol/L (3.6-5.0) 08/07/17 05:30 Chloride 107 mmol/L (95-110) 08/07/17 05:30 Carbon Dioxide 27 mmol/L (21-33) 08/07/17 05:30 Anion Gap 9 (10-20) L 08/07/17 05:30 BUN 12 mg/dL (7-21) 08/07/17 05:30 Creatinine 0.7 mg/dL (0.5-1.4) 08/07/17 05:30 Est GFR ( Amer) > 60 08/07/17 05:30 Est GFR (Non-Af Amer) > 60 08/07/17 05:30 Random Glucose 85 mg/dL (70-110) 08/07/17 05:30 Calcium 7.8 mg/dL (8.4-10.5) L 08/07/17 05:30 Phosphorus 2.5 mg/dL (2.5-4.5) 08/07/17 05:30 Magnesium 1.4 mg/dL (1.7-2.2) L 08/07/17 05:30 Iron 102 ug/dL (45-180) 08/06/17 11:57 TIBC 147 ug/dL (261-462) L 08/06/17 11:57 % Saturation 69 % (20-55) H 08/06/17 11:57 Ferritin 1360.0 ng/mL 08/06/17 11:40 Total Bilirubin 0.9 mg/dL (0.2-1.3) 08/07/17 05:30 AST 9 U/L (17-59) L D 08/07/17 05:30 ALT 23 U/L (7-56) 08/07/17 05:30 Alkaline Phosphatase 62 U/L (38-126) 08/07/17 05:30 Lactate Dehydrogenase 130 U/L (333-699) L 08/05/17 18:00 Total Creatine Kinase < 20 U/L (35-230) L 08/05/17 18:00 Troponin I < 0.01 ng/mL 08/05/17 18:00 C-React Prot High Sens > 15.00 mg/L (1.00-3.00) H 08/05/17 18:00 Total Protein 5.2 g/dL (5.8-8.3) L 08/07/17 05:30 Albumin 2.3 g/dL (3.0-4.8) L 08/07/17 05:30 Globulin 2.9 gm/dL 08/07/17 05:30 Albumin/Globulin Ratio 0.8 (1.1-1.8) L 08/07/17 05:30 Lipase < 10 U/L (23-300) L 08/05/17 18:00 Vitamin B12 880 pg/mL (239-931) 08/06/17 11:40 Folate 3.9 ng/mL 08/06/17 11:40 Procalcitonin 0.41 NG/ML (0.19-0.49) 08/05/17 18:00 TSH 3rd Generation 2.22 mIU/mL (0.46-4.68) 08/05/17 18:00 Venous Blood Potassium 2.7 mmol/L (3.6-5.2) L 08/05/17 18:00 Urine Color Yellow (YELLOW) 08/06/17 08:19 Urine Appearance Clear (CLEAR) 08/06/17 08:19 Urine pH 6.0 (4.7-8.0) 08/06/17 08:19 Ur Specific [place] 1.015 (1.005-1.035) 08/06/17 08:19 Urine Protein Negative mg/dL (<30 mg/dL) 08/06/17 08:19 Urine Glucose (UA) Negative mg/dL (NEGATIVE) 08/06/17 08:19 Urine Ketones Negative mg/dL (NEGATIVE) 08/06/17 08:19 Urine Blood Negative (NEGATIVE) 08/06/17 08:19 Urine Nitrate Negative (NEGATIVE) 08/06/17 08:19 Urine Bilirubin Negative (NEGATIVE) 08/06/17 08:19 Urine Urobilinogen 0.2 E.U./dL (<1 E.U./dL) 08/06/17 08:19 Ur Leukocyte Esterase Negative Deborah/uL (NEGATIVE) 08/06/17 08:19 IgG 284.2 mg/dL (700.0-1600.0) L 08/06/17 11:57 IgA 1231.6 mg/dL (70.0-400.0) H 08/06/17 11:57 IgM 30.8 mg/dL (40.0-230.0) L 08/06/17 11:57 Blood Type O POSITIVE 08/05/17 18:00 Antibody Screen Negative 08/05/17 18:00 Crossmatch See Detail 08/05/17 18:00 BBK History Checked Patient has bt 08/05/17 18:00 Discharge Exam - Head Exam Head Exam: ATRAUMATIC, NORMOCEPHALIC Discharge Plan - Follow Up Plan Condition: SERIOUS Disposition: HOME/ ROUTINE Referrals: PCP,NO [Primary Care Provider] -
[2017-08-08] MEDS: Pantoprazole 40 mg EC Tab PO SCH (06:41)
[2017-08-08 07:17] LABS: EOS % 0.7 % (1.5-5.0); GRAN # 0.79 (1.4-6.5); GRAN % 56.9 % (50.0-68.0); HEMATOCRIT 29.7 % (42.0-52.0); LYMPH # 0.3 (1.2-3.4); LYMPH % 22.3 % (22.0-35.0); MEAN CELL VOLUME 92.2 fl (80.0-105.0); MEAN CORPUSCULAR HEMOGLOBIN 30.1 pg (25.0-35.0); MEAN CORPUSCULAR HGB CONC 32.7 g/dl (31.0-37.0); MEAN PLATELET VOLUME 10.6 fl (7.0-11.0); MONO # 0.3 (0.1-0.6); MONO % 20.1 % (1.0-6.0); RED CELL DISTRIBUTION WIDTH 16.4 % (11.5-14.5)
[2017-08-08 07:41] LABS: WHITE BLOOD COUNT 1.4 10^3/ul (4.5-11.0)
[2017-08-08 07:48] LABS: ALB/GLOB RATIO 0.9 (1.1-1.8); ALKALINE PHOSPHATASE 424 U/L (38-126); ALT/SGPT 70 U/L (7-56); AST/SGOT 51 U/L (17-59); BILIRUBIN,TOTAL 0.9 mg/dL (0.2-1.3); BLOOD UREA NITROGEN 12 mg/dL (7-21); CALCIUM 7.9 mg/dL (8.4-10.5); CARBON DIOXIDE 26 mmol/L (21-33); CHLORIDE 106 mmol/L (98-107); GFR AFRICAN-AMERICAN > 60; GLUCOSE,RANDOM 91 mg/dL (70-110); MAGNESIUM 1.8 mg/dL (1.7-2.2); PHOSPHOROUS 2.3 mg/dL (2.5-4.5); POTASSIUM 4.5 mmol/L (3.6-5.0); SODIUM 139 mmol/L (132-148); TOTAL PROTEIN 5.6 g/dL (5.8-8.3)
--- NOTE | 2017-08-08 08:27 | RAD ---
HISTORY: Crackles auscultated COMPARISON: 08/05/2017. FINDINGS: LUNGS: There is patchy airspace disease in both lower lobes. There is mild pulmonary venous congestion. PLEURA: No significant pleural effusion identified, no pneumothorax apparent. CARDIOVASCULAR: There is mild cardiomegaly. Status post CABG. OSSEOUS STRUCTURES: No significant abnormalities. VISUALIZED UPPER ABDOMEN: Normal. OTHER FINDINGS: None. IMPRESSION: Patchy airspace disease in the lower lobes may represent multifocal pneumonia. Follow-up after medical management is recommended to ensure complete resolution.
--- NOTE | 2017-08-08 09:32 | RAD ---
PROCEDURE: Radiographs of the Right Shoulder HISTORY: Right shoulder pain COMPARISON: No prior. FINDINGS: BONES: There is no acute displaced fracture or bone destruction. Bone alignment is normal. There is mild bone demineralization. JOINTS: Normal. Glenohumeral and acromioclavicular joints preserved. No osteoarthritis. SOFT TISSUES: Normal. OTHER FINDINGS: None. IMPRESSION: No acute fracture, dislocation or significant degenerative osteoarthrosis.
--- NOTE | 2017-08-08 09:46 | RAD ---
PROCEDURE: Radiographs of the right elbow. HISTORY: R elbow pain COMPARISON: No prior. FINDINGS: BONES: Status post open reduction and internal fixation of humeral fracture. There is a transverse lucency in the distal humerus. There is also diffuse sclerosis in the distal humerus with callus formation along the lateral surface. A metallic plate and screws are seen transfixing the fracture. No evidence of hardware complications. Are also screw tracks in the distal humerus. 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 SOFT TISSUES: There is probably he treat ectopic ossifications in the medial soft tissues of the distal arm. JOINT EFFUSION: None. OTHER FINDINGS: None. IMPRESSION: Suspect nonunited fracture in the distal humerus. 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 Apparent sclerosis in the distal humerus could be related to postsurgical changes/ post reparative changes.
--- NOTE | 2017-08-08 13:58 | CP.PCM.PN ---
<Ji Moon - Last Filed: 08/08/17 13:52> Subjective - Date & Time of Evaluation Date of Evaluation: 08/08/17 Time of Evaluation: 12:35 - Subjective Subjective: Subjective: Patient seen and examined at bedside. Resting comfortably in bed. No acute overnight events. Patient states that his elbow pain is at baseline. Offers no new complaints at this time. Denies f/c/cp/sob/abdominal pain/n/v/d/c/urinary sxs. Physical Examination: - Constitutional Appears: No Acute Distress, Chronically Ill - Head Exam Head Exam: ATRAUMATIC, NORMAL INSPECTION, NORMOCEPHALIC - Eye Exam Eye Exam: Normal appearance - ENT Exam ENT Exam: Mucous Membranes Dry - Neck Exam Neck exam: Positive for: Full Rom, Normal Inspection - Respiratory Exam Respiratory Exam: Clear to Auscultation Bilateral, NORMAL BREATHING PATTERN - Cardiovascular Exam Cardiovascular Exam: REGULAR RHYTHM - GI/Abdominal Exam GI & Abdominal Exam: Normal Bowel Sounds, Soft. absent: Tenderness - Rectal Exam Rectal Exam: Deferred - Extremities Exam Extremities exam: Positive for: normal inspection - Neurological Exam Additional comments: patient is awake, alert, responds to verbal stimuli, follows commands, and moves extremities past midline Assessment and Plan: Patient is a 57 year old man with a past medical history of myasthenia gravis and multiple myeloma, who is being admitted for evaluation and treatment of pancytopenia, symptomatic anemia and neutropenia. Right Elbow Pain - xray shows nonunited fracture of the distal humerus- ortho consulted- appreciate recs Neutropenia: -likely associated with recent chemotherapy for MM -neutropenic precautions -neutropenic diet - blood and urine culture -check procalcitonin -heme/onc consulted- ok to discharge from their perspective -IVF Symptomatic Anemia: -likely associated with BM suppression -no evidence of overt bleeding -transfused 2units PRBC's - Hgb decreased to 9.7 - O2 via NC as needed Pancytopenia: -likely associated with BM suppression -heme/onc consulted- appreciate recs (patient sees oncologist in [place])- Dr. Padilla IgA, Igg, IgM- noted; kappa/lambda free pending Multiple Myeloma: -pt reportedly on oral and IV chemo -heme/onc consulted- appreciate recs (patient sees oncologist in [place])- Dr. Padilla IgA, Igg, IgM noted; kappa/lambda free pending Myasthenia Gravis: -O2 via NC PRN -fall precautions Hypokalemia - resolved Hypomagnesemia - resolved PPx: - SC Heparin and SCD's - Protonix Patient seen, case discussed with, and plan approved by attending physician, Dr. Wynn. Objective - Vital Signs/Intake and Output Vital Signs (last 24 hours): Temp Pulse Resp BP Pulse Ox 99 F 71 18 115/72 98 08/08/17 07:52 08/08/17 07:52 08/08/17 07:52 08/08/17 07:52 08/08/17 07:52 Intake and Output: 08/08/17 08/08/17 06:59 18:59 Intake Total 360 Output Total 1000 Balance -640 - Medications Medications: Current Medications Acetaminophen (Tylenol 325mg Tab) 650 mg PO Q6H PRN PRN Reason: Fever >100.4 F Last Admin: 08/07/17 01:50 Dose: 650 mg Home Med (Home Med) 1 unit PO DAILY [facility] Last Admin: 08/08/17 10:01 Dose: 1 unit Sodium Chloride (Sodium Chloride 0.9%) 1,000 mls @ 125 mls/hr IV .Q8H [facility] Last Admin: 08/07/17 12:57 Dose: Not Given Morphine Sulfate (Morphine) 0.5 mg IVP Q4H PRN PRN Reason: Pain, severe (8-10) Last Admin: 08/08/17 04:39 Dose: 0.5 mg Mycophenolate Mofetil (Cellcept Cap) 500 mg PO BID [facility] Last Admin: 08/08/17 10:28 Dose: 500 mg Ondansetron HCl (Zofran Inj) 4 mg IVP Q6H PRN PRN Reason: Nausea/Vomiting Pantoprazole Sodium (Protonix Ec Tab) 40 mg PO 0600 [facility] Last Admin: 08/08/17 06:41 Dose: 40 mg Prednisone (Prednisone Tab) 5 mg PO BID [facility] Last Admin: 08/08/17 10:02 Dose: 5 mg - Labs Labs: 08/08/17 06:30 08/08/17 06:30 PT 14.0 Seconds (9.9-11.8) H 08/05/17 18:00 INR 1.30 (0.93-1.08) H 08/05/17 18:00 APTT 41.0 Seconds (23.7-30.8) H 08/05/17 18:00 Assessment and Plan (1) Multiple myeloma Status: Acute (2) Pancytopenia Status: Acute (3) Myasthenia gravis Status: Acute <Amanuel Wynn - Last Filed: 08/10/17 13:16> Objective - Vital Signs/Intake and Output Vital Signs (last 24 hours): Temp Pulse Resp BP Pulse Ox 98.6 F 75 18 97/56 L 98 08/09/17 16:00 08/09/17 16:00 08/09/17 16:00 08/09/17 16:00 08/09/17 16:00 - Labs Labs: 08/09/17 10:15 08/09/17 10:15 PT 14.0 Seconds (9.9-11.8) H 08/05/17 18:00 INR 1.30 (0.93-1.08) H 08/05/17 18:00 APTT 41.0 Seconds (23.7-30.8) H 08/05/17 18:00 Attending/Attestation - Attestation I have personally seen and examined this patient.: Yes I have fully participated in the care of the patient.: Yes I have reviewed all pertinent clinical information, including history, physical exam and plan: Yes Notes (Text): I have seen and examined the patient at bedside. Agree with the note above with the following additions/ exceptions: Briefly this is 57 year old male with history of MG, MM who was admitted for pancytopenia. ANC is >500. Continue neutropenic precuations. Cultures pending. He is s/p 2 units prbc. Patient recently had chemotherapy. Heme onc consult appreciated. Pancytopenia is secondary to BM suppression. Right elbow xray revealed non united fracture of distal humerus. Will consult ortho. Upon discharge patient will follow up with Dr Olivares and Dr Reed. Dr Amanuel Wynn
--- NOTE | 2017-08-08 16:40 | CP.PCM.PN ---
Subjective - Date & Time of Evaluation Date of Evaluation: 08/08/17 Time of Evaluation: 15:00 - Subjective Subjective: Infectious Disease Follow Up: August 08, 2017 57 yo AA male well known to me from outpatient home IV infusions where the patient had received IV Vancomycin for treatment for MRSA in the Right elbow then Dalvance. The patient had multiple compliance issues with the IV Vancomycin so the patient received Dalvance 1500mg weekly for 2 weeks in the outpatient setting. Second dose was given 2 weeks ago. In the outpatient setting, the WBC was low from 3-5 during the last 3 weeks of his antibiotic treatment. He also displayed renal insufficiency and acute kidney injury during the treatment time. We could never verify if he had been taking the Vancomycin properly as his Vancomycin level varied widely. Last surgery was about 6 weeks ago for the right elbow. The wound site has healed rather well from the last time I examined the wound site. No need for further antibiotics. Objective - Vital Signs/Intake and Output Vital Signs (last 24 hours): Temp Pulse Resp BP Pulse Ox 99 F 71 18 115/72 98 08/08/17 07:52 08/08/17 07:52 08/08/17 07:52 08/08/17 07:52 08/08/17 07:52 Intake and Output: 08/08/17 08/08/17 06:59 18:59 Intake Total 360 360 Output Total 1000 300 Balance -640 60 - Medications Medications: Current Medications Acetaminophen (Tylenol 325mg Tab) 650 mg PO Q6H PRN PRN Reason: Fever >100.4 F Last Admin: 08/07/17 01:50 Dose: 650 mg Home Med (Home Med) 1 unit PO DAILY [facility] Last Admin: 08/08/17 10:01 Dose: 1 unit Sodium Chloride (Sodium Chloride 0.9%) 1,000 mls @ 125 mls/hr IV .Q8H [facility] Last Admin: 08/07/17 12:57 Dose: Not Given Morphine Sulfate (Morphine) 0.5 mg IVP Q4H PRN PRN Reason: Pain, severe (8-10) Last Admin: 08/08/17 04:39 Dose: 0.5 mg Mycophenolate Mofetil (Cellcept Cap) 500 mg PO BID [facility] Last Admin: 08/08/17 10:28 Dose: 500 mg Ondansetron HCl (Zofran Inj) 4 mg IVP Q6H PRN PRN Reason: Nausea/Vomiting Pantoprazole Sodium (Protonix Ec Tab) 40 mg PO 0600 [facility] Last Admin: 08/08/17 06:41 Dose: 40 mg Prednisone (Prednisone Tab) 5 mg PO BID [facility] Last Admin: 08/08/17 10:02 Dose: 5 mg - Labs Labs: 08/08/17 06:30 08/08/17 06:30 PT 14.0 Seconds (9.9-11.8) H 08/05/17 18:00 INR 1.30 (0.93-1.08) H 08/05/17 18:00 APTT 41.0 Seconds (23.7-30.8) H 08/05/17 18:00 - Constitutional Appears: Non-toxic, No Acute Distress, Chronically Ill - Head Exam Head Exam: ATRAUMATIC, NORMOCEPHALIC - Eye Exam Eye Exam: EOMI, PERRL Pupil Exam: NORMAL ACCOMODATION, PERRL - ENT Exam ENT Exam: Mucous Membranes Moist, Normal External Ear Exam, TM's Normal Bilaterally - Neck Exam Neck Exam: Full ROM, Normal Inspection - Respiratory Exam Respiratory Exam: Clear to Ausculation Bilateral, NORMAL BREATHING PATTERN. absent: Rales, Rhonchi, Wheezes - Cardiovascular Exam Cardiovascular Exam: REGULAR RHYTHM, RRR, +S1, +S2 - GI/Abdominal Exam GI & Abdominal Exam: Soft, Normal Bowel Sounds. absent: Distended, Tenderness - Extremities Exam Additional comments: general weakness. - Neurological Exam Neurological Exam: Alert, Awake, CN II-XII Intact, Oriented x3 - Psychiatric Exam Psychiatric exam: Normal Affect, Normal Mood - Skin Skin Exam: Intact, Normal Color Assessment and Plan - Assessment and Plan (Free Text) Assessment: 57 yo AA male with completion of antibiotic therapy with Dalvance about 2 weeks ago for MRSA in the right elbow and was on IV Vancomycin prior to that. The last laboratories I have are from 07/21/2017 showing WBC of 4.1 at that time, Platelets of 132, and Hgb of 7.4. ESR was 50 at that time. The right elbow site has healed. Creatinine of 0.99 at that time. The patient is currently showing leukopenia. Dalvance stays in the body for around 2 weeks. I would not give any further antibiotics at this time. Monitor leukopenia. Thank you for allowing me to participate in the care of the patient, we will follow with you.
[2017-08-09] MEDS: Morphine 2 mg/ml ISec IVP PRN (00:58)
--- NOTE | 2017-08-09 04:08 | CON ---
ORTHOPEDIC CONSULTATION DATE: 08/08/2017 The patient was admitted on 08/05/2017 to the emergency room for medical reasons and he has been treated for multiple myeloma and myasthenia gravis with therapy and IV infusion and he has had multiple fractures last one being a right elbow by Dr. Vicente. Left hip done in [place] [facility] and no other active fractures. He does have left shoulder pain, but there is no active fracture or dislocation. He does have extensive osteopenia and osteoarthritis. He is on IV infusions for infected elbow that is being cared for, but he does not need orthopedic surgery at this time. No need for orthopedic followup as he has multiple orthopedic doctors, and once he gets out of the hospital, he could follow up with the doctors that did the surgery.when asked about pain she has no pain FINAL DIAGNOSES: Osteopenia, multiple myeloma and myasthenia gravis. Jatin Garza DO MTDD
[2017-08-09] MEDS: Pantoprazole 40 mg EC Tab PO SCH (06:29)
[2017-08-09 10:28] LABS: HEMATOCRIT 28.4 % (42.0-52.0); MEAN CELL VOLUME 93.1 fl (80.0-105.0); MEAN CORPUSCULAR HEMOGLOBIN 29.8 pg (25.0-35.0); MEAN PLATELET VOLUME 9.3 fl (7.0-11.0); RED CELL DISTRIBUTION WIDTH 16.5 % (11.5-14.5)
[2017-08-09 10:38] LABS: WHITE BLOOD COUNT 1.3 10^3/ul (4.5-11.0)
[2017-08-09 10:48] LABS: BLOOD UREA NITROGEN 10 mg/dL (7-21); CALCIUM 7.7 mg/dL (8.4-10.5); CARBON DIOXIDE 24 mmol/L (21-33); CHLORIDE 105 mmol/L (98-107); GFR AFRICAN-AMERICAN > 60; GLUCOSE,RANDOM 134 mg/dL (70-110); MAGNESIUM 1.5 mg/dL (1.7-2.2); PHOSPHOROUS 1.5 mg/dL (2.5-4.5); POTASSIUM 3.5 mmol/L (3.6-5.0); SODIUM 137 mmol/L (132-148)
[2017-08-09] MEDS ORDERED: Magnesium Sulfate 2 GM in Sodium Chloride 0.9% 100 ML IVPB ONE (11:20)
[2017-08-09] MEDS ORDERED: Potassium Chloride 20 mEq ER Tab PO ONE (11:21)
[2017-08-09] MEDS ORDERED: Potassium & Sodium Phosphate PO ONE (11:31)
--- NOTE | 2017-08-09 17:59 | CP.PCM.PN ---
Subjective - Date & Time of Evaluation Date of Evaluation: 08/08/17 Time of Evaluation: 19:00 - Subjective Subjective: Feeling better Objective - Vital Signs/Intake and Output Vital Signs (last 24 hours): Temp Pulse Resp BP Pulse Ox 98.2 F 60 18 109/58 L 100 08/09/17 08:00 08/09/17 08:00 08/09/17 08:00 08/09/17 08:00 08/09/17 08:00 Intake and Output: 08/09/17 08/09/17 06:59 18:59 Intake Total 240 240 Output Total 900 300 Balance -660 -60 - Medications Medications: Current Medications Acetaminophen (Tylenol 325mg Tab) 650 mg PO Q6H PRN PRN Reason: Fever >100.4 F Last Admin: 08/07/17 01:50 Dose: 650 mg Home Med (Home Med) 1 unit PO DAILY [facility] Last Admin: 08/09/17 10:29 Dose: 1 unit Sodium Chloride (Sodium Chloride 0.9%) 1,000 mls @ 125 mls/hr IV .Q8H [facility] Last Admin: 08/07/17 12:57 Dose: Not Given Morphine Sulfate (Morphine) 0.5 mg IVP Q4H PRN PRN Reason: Pain, severe (8-10) Last Admin: 08/09/17 00:58 Dose: 0.5 mg Mycophenolate Mofetil (Cellcept Cap) 500 mg PO BID [facility] Last Admin: 08/09/17 10:28 Dose: 500 mg Ondansetron HCl (Zofran Inj) 4 mg IVP Q6H PRN PRN Reason: Nausea/Vomiting Pantoprazole Sodium (Protonix Ec Tab) 40 mg PO 0600 [facility] Last Admin: 08/09/17 06:29 Dose: 40 mg Prednisone (Prednisone Tab) 5 mg PO BID [facility] Last Admin: 08/09/17 10:28 Dose: 5 mg - Labs Labs: 08/09/17 10:15 08/09/17 10:15 PT 14.0 Seconds (9.9-11.8) H 08/05/17 18:00 INR 1.30 (0.93-1.08) H 08/05/17 18:00 APTT 41.0 Seconds (23.7-30.8) H 08/05/17 18:00 - Head Exam Head Exam: ATRAUMATIC - Eye Exam Eye Exam: Normal appearance - ENT Exam ENT Exam: Mucous Membranes Dry - Respiratory Exam Respiratory Exam: NORMAL BREATHING PATTERN - Cardiovascular Exam Cardiovascular Exam: +S1, +S2 - GI/Abdominal Exam GI & Abdominal Exam: Normal Bowel Sounds - Extremities Exam Extremities Exam: Normal Inspection Assessment and Plan (1) Pancytopenia Assessment & Plan: secondary to myeloma moderate neutropenia s/p PRBC transfusion outpatient f/u Status: Acute (2) Coagulopathy Status: Acute (3) Myeloma Status: Acute
[2017-08-09 18:16] VITALS: BP 97/56; PULSE 75; TEMP 98.6; O2SAT 98
--- NOTE | 2017-08-09 18:32 | CP.PCM.PN ---
Subjective - Date & Time of Evaluation Date of Evaluation: 08/09/17 Time of Evaluation: 16:00 - Subjective Subjective: Infectious Disease Follow Up: August 09, 2017 57 yo AA male well known to me from outpatient home IV infusions where the patient had received IV Vancomycin for treatment for MRSA in the Right elbow then Dalvance. The patient had multiple compliance issues with the IV Vancomycin so the patient received Dalvance 1500mg weekly for 2 weeks in the outpatient setting. Second dose was given 2 weeks ago. In the outpatient setting, the WBC was low from 3-5 during the last 3 weeks of his antibiotic treatment. He also displayed renal insufficiency and acute kidney injury during the treatment time. We could never verify if he had been taking the Vancomycin properly as his Vancomycin level varied widely. Last surgery was about 6 weeks ago for the right elbow. The wound site has healed rather well from the last time I examined the wound site. No need for further antibiotics. Objective - Vital Signs/Intake and Output Vital Signs (last 24 hours): Temp Pulse Resp BP Pulse Ox 98.6 F 75 18 97/56 L 98 08/09/17 16:00 08/09/17 16:00 08/09/17 16:00 08/09/17 16:00 08/09/17 16:00 Intake and Output: 08/09/17 08/09/17 06:59 18:59 Intake Total 240 240 Output Total 900 300 Balance -660 -60 - Medications Medications: Current Medications Acetaminophen (Tylenol 325mg Tab) 650 mg PO Q6H PRN PRN Reason: Fever >100.4 F Last Admin: 08/07/17 01:50 Dose: 650 mg Home Med (Home Med) 1 unit PO DAILY [facility] Last Admin: 08/09/17 10:29 Dose: 1 unit Sodium Chloride (Sodium Chloride 0.9%) 1,000 mls @ 125 mls/hr IV .Q8H [facility] Last Admin: 08/07/17 12:57 Dose: Not Given Morphine Sulfate (Morphine) 0.5 mg IVP Q4H PRN PRN Reason: Pain, severe (8-10) Last Admin: 08/09/17 00:58 Dose: 0.5 mg Mycophenolate Mofetil (Cellcept Cap) 500 mg PO BID [facility] Last Admin: 08/09/17 10:28 Dose: 500 mg Ondansetron HCl (Zofran Inj) 4 mg IVP Q6H PRN PRN Reason: Nausea/Vomiting Pantoprazole Sodium (Protonix Ec Tab) 40 mg PO 0600 [facility] Last Admin: 08/09/17 06:29 Dose: 40 mg Prednisone (Prednisone Tab) 5 mg PO BID [facility] Last Admin: 08/09/17 10:28 Dose: 5 mg - Labs Labs: 08/09/17 10:15 08/09/17 10:15 PT 14.0 Seconds (9.9-11.8) H 08/05/17 18:00 INR 1.30 (0.93-1.08) H 08/05/17 18:00 APTT 41.0 Seconds (23.7-30.8) H 08/05/17 18:00 - Constitutional Appears: Non-toxic, No Acute Distress, Chronically Ill - Head Exam Head Exam: ATRAUMATIC, NORMOCEPHALIC - Eye Exam Eye Exam: EOMI, PERRL Pupil Exam: NORMAL ACCOMODATION, PERRL - ENT Exam ENT Exam: Mucous Membranes Moist, Normal External Ear Exam, TM's Normal Bilaterally - Neck Exam Neck Exam: Full ROM, Normal Inspection - Respiratory Exam Respiratory Exam: Clear to Ausculation Bilateral, NORMAL BREATHING PATTERN. absent: Rales, Rhonchi, Wheezes - Cardiovascular Exam Cardiovascular Exam: REGULAR RHYTHM, RRR, +S1, +S2 - GI/Abdominal Exam GI & Abdominal Exam: Soft, Normal Bowel Sounds. absent: Distended, Tenderness - Extremities Exam Additional comments: general weakness - Neurological Exam Neurological Exam: Alert, Awake, CN II-XII Intact, Oriented x3 - Psychiatric Exam Psychiatric exam: Normal Affect, Normal Mood - Skin Skin Exam: Intact, Normal Color Assessment and Plan - Assessment and Plan (Free Text) Assessment: 57 yo AA male with completion of antibiotic therapy with Dalvance about 2 weeks ago for MRSA in the right elbow and was on IV Vancomycin prior to that. The last laboratories I have are from 07/21/2017 showing WBC of 4.1 at that time, Platelets of 132, and Hgb of 7.4. ESR was 50 at that time. The right elbow site has healed. Creatinine of 0.99 at that time. The patient is currently showing leukopenia. Dalvance stays in the body for around 2 weeks. I would not give any further antibiotics at this time. Monitor leukopenia. Thank you for allowing me to participate in the care of the patient, we will follow with you.
--- NOTE | 2017-08-12 18:47 | CP.PCM.PN ---
Subjective - Date & Time of Evaluation Date of Evaluation: 08/09/17 Time of Evaluation: 16:00 - Subjective Subjective: Feeling better Objective - Vital Signs/Intake and Output Vital Signs (last 24 hours): Temp Pulse Resp BP Pulse Ox 98.6 F 75 18 97/56 L 98 08/09/17 16:00 08/09/17 16:00 08/09/17 16:00 08/09/17 16:00 08/09/17 16:00 - Labs Labs: 08/09/17 10:15 08/09/17 10:15 PT 14.0 Seconds (9.9-11.8) H 08/05/17 18:00 INR 1.30 (0.93-1.08) H 08/05/17 18:00 APTT 41.0 Seconds (23.7-30.8) H 08/05/17 18:00 - Head Exam Head Exam: ATRAUMATIC - Eye Exam Eye Exam: Normal appearance - ENT Exam ENT Exam: Mucous Membranes Dry - Respiratory Exam Respiratory Exam: NORMAL BREATHING PATTERN - Cardiovascular Exam Cardiovascular Exam: +S1, +S2 - GI/Abdominal Exam GI & Abdominal Exam: Normal Bowel Sounds - Extremities Exam Extremities Exam: Normal Inspection Assessment and Plan (1) Pancytopenia Assessment & Plan: secondary to multiple myeloma transfusions support Status: Acute (2) Coagulopathy Assessment & Plan: nutritional Status: Acute (3) Myeloma Assessment & Plan: outpatient treatment Status: Acute
== END 2017-08-09 20:05 | disposition home or self-care (01) | DRG 574 ==
LOC: ED 16:10 → ERH 19:36 → CCU 08-06 01:37 → 5RSO 08-07 16:08
PROVIDERS: ADMIT Hospitalist; ATTEND Hospitalist
PROC: 30233N1 Transfusion of Nonautologous Red Blood Cells into Peripheral Vein, Percutaneous Approach (ICD-10-PCS; principal; 2017-08-06)
DX: D61.818 Other pancytopenia (principal); G70.00 Myasthenia gravis without (acute) exacerbation; N17.9 Acute kidney failure, unspecified; C90.00 Multiple myeloma not having achieved remission; M84.621 Pathological fracture in other disease, right humerus; N18.9 Chronic kidney disease, unspecified; E87.6 Hypokalemia; M85.80 Other specified disorders of bone density and structure, unspecified site; D70.1 Agranulocytosis secondary to cancer chemotherapy; T45.1X5A Adverse effect of antineoplastic and immunosuppressive drugs, initial encounter; E83.42 Hypomagnesemia; M19.012 Primary osteoarthritis, left shoulder; D68.9 Coagulation defect, unspecified; Z87.891 Personal history of nicotine dependence